=== PATIENT | male | born 1945 | race Asian ===

== ENCOUNTER 2018-03-24 11:31 | Inpatient (IN) | payer OTHER, MEDICAID ==
[~2018-03-24] VITALS: Ht 165.1 cm; Wt 65.8 kg
[2018-03-24] MEDS ORDERED: BENZ1TAB7 PO (12:27)
[2018-03-24] MEDS ORDERED: PALI6TAB PO (12:27)
[2018-03-24] MEDS ORDERED: DIVA250T4 PO (12:27)
[2018-03-24] MEDS ORDERED: RISP0.253 PO (12:27)
[2018-03-24] MEDS ORDERED: ZOLP5TAB2 PO (12:27)
[2018-03-24] MEDS ORDERED: MAG HYDROX/AL HYDROX/SIMETH 30 ML UDC PO PRN (12:30)
[2018-03-24] MEDS ORDERED: MAGNESIUM HYDROXIDE 30 ML UDC PO PRN (12:30)
[2018-03-24] MEDS ORDERED: ACETAMINOPHEN 325 MG TABLET PO PRN (12:30)
[2018-03-24 13:10] VITALS: BP 144/85
--- NOTE | 2018-03-24 14:51 | NUR ---
Admitted a 72 years old male on 5150 for DTS. Pt. reports to hearing voices telling him to hurt people and himself. Pt. reports the voices are constant and cause him distress. Pt. states he is finding it difficult to control himself. Pt. arrived in the unit via a gurney and transported via a gurney by EMT, pt. came from [facility], alert/ oriented x3, ambulatory, continent, Mandarin speaking and speaks basic Mongolian. Upon face to face assessment, pt. denies being suicidal and homicidal and saying that voices stopped, disorganized, cooperative in the admission process and refused to sign the papers and said he will sign by the time he'll be discharged. Pt. denies medical problems and skin is clear and intact. Dr. Salas made aware of the admission and with orders and Darnell Harry NP is medical doctor in charge. V/S taken, contraband done and skin assessment done and will continue to monitor for safety.
[2018-03-24 16:00] VITALS: BP 127/76
[2018-03-24 20:00] VITALS: BP 133/79
[2018-03-24] MEDS: TEMAZEPAM 15 MG CAPSULE PO PRN (22:45)
[2018-03-25] MEDS: clonazePAM 0.5 MG TABLET PO PRN (06:07)
[2018-03-25 07:29] LABS: ALBUMIN 3.9 g/dL (3.4-5.0); BILIRUBIN,TOTAL 0.6 mg/dL (0.2-1.0); CREATININE 0.9 mg/dL (0.6-1.3); TOTAL PROTEIN, SERUM 7.4 g/dL (6.4-8.2)
[2018-03-25 08:00] VITALS: BP 135/88
[2018-03-25] MEDS: NICOTINE PATCH (14MG) 14 MG PATCH.TD24 TD SCH (08:14)
--- NOTE | 2018-03-25 12:10 | NUR ---
Initial Discharge note: Pt is to possibly be discharged to [facility] Address: [address], [place] [address] ADMIN Brigette and Sec [phone]. Social work will form a safe and proper discharge.
--- NOTE | 2018-03-25 12:42 | NUR ---
UR NOTE: SW attempted three times to contact [facility] case manager specialist Avril Debbie [phone] for clinical update. Call was dropped and SW was unable to speak to a case manager specialist.
[2018-03-25] MEDS: BENZTROPINE MESYLATE (1 MG) 1 MG TABLET PO SCH ×2 (14:45→21:22)
[2018-03-25] MEDS: DIVALPROEX SODIUM 250 MG TABLET.DR PO SCH ×2 (14:45→21:22)
[2018-03-25] MEDS: risperiDONE 1 MG TABLET PO SCH ×2 (14:45→21:22)
[2018-03-25 16:00] VITALS: BP 148/98
[2018-03-25] MEDS: POLYVINYL ALCOHOL 15 ML BOTTLE EACHEYE PRN (16:14)
[2018-03-25 20:41] VITALS: BP 123/70
[2018-03-25] MEDS: TEMAZEPAM 15 MG CAPSULE PO PRN (21:22)
[2018-03-26 08:00] VITALS: BP 128/66
[2018-03-26] MEDS: DIVALPROEX SODIUM 250 MG TABLET.DR PO SCH ×2 (08:28→20:07)
[2018-03-26] MEDS: NICOTINE PATCH (14MG) 14 MG PATCH.TD24 TD SCH (08:28)
[2018-03-26] MEDS: BENZTROPINE MESYLATE (1 MG) 1 MG TABLET PO SCH ×3 (08:28→16:26)
[2018-03-26] MEDS: risperiDONE 1 MG TABLET PO SCH ×2 (08:28→16:27)
[2018-03-26 16:01] VITALS: BP 145/86
[2018-03-26 20:00] VITALS: BP 147/75
[2018-03-26] MEDS: clonazePAM 0.5 MG TABLET PO PRN (20:07)
[2018-03-26] MEDS: POLYVINYL ALCOHOL 15 ML BOTTLE EACHEYE PRN (20:08)
[2018-03-26] MEDS: TEMAZEPAM 15 MG CAPSULE PO PRN (21:21)
[2018-03-27 08:03] VITALS: BP 126/70
[2018-03-27] MEDS: BENZTROPINE MESYLATE (1 MG) 1 MG TABLET PO SCH ×3 (08:31→16:19)
[2018-03-27] MEDS: DIVALPROEX SODIUM 250 MG TABLET.DR PO SCH ×2 (08:31→20:03)
[2018-03-27] MEDS: NICOTINE PATCH (14MG) 14 MG PATCH.TD24 TD SCH (08:31)
[2018-03-27] MEDS: risperiDONE 1 MG TABLET PO SCH ×2 (08:32→16:19)
[2018-03-27 16:25] VITALS: BP 147/75
[2018-03-27 20:00] VITALS: BP 147/74
[2018-03-27] MEDS: clonazePAM 0.5 MG TABLET PO PRN (21:48)
[2018-03-27 23:00] VITALS: BP 135/80
[2018-03-27] MEDS: TEMAZEPAM 15 MG CAPSULE PO PRN (23:28)
[2018-03-28 08:00] VITALS: BP 138/77
[2018-03-28] MEDS: NICOTINE PATCH (14MG) 14 MG PATCH.TD24 TD SCH (08:20)
[2018-03-28] MEDS: BENZTROPINE MESYLATE (1 MG) 1 MG TABLET PO SCH (08:20)
[2018-03-28] MEDS: risperiDONE 1 MG TABLET PO SCH (08:20)
[2018-03-28] MEDS: DIVALPROEX SODIUM 250 MG TABLET.DR PO SCH (08:20)
--- NOTE | 2018-03-28 09:57 | NUR ---
DR. CASE GAVE AN ORDER TO D/C HOLD AND D/C TO [facility] AND TO FOLLOW UP WITH PSYCH AND MEDICAL DOCTORS.
--- NOTE | 2018-03-28 11:09 | NUR ---
RN NOTES PATIENT D/C BACK TO [facility] PER MD ORDER.
--- NOTE | 2018-03-28 11:59 | NUR ---
DISCHARGE NOTES PATIENT DISCHARGE AT THIS TIME GOING BACT TO [facility]. PATIENT A/O X3. PATIENT DENIED SI/HI./AVH. MED RECONCILIATION AND DISCHARGE ORDER REVIEWED AND EXPLAINED TO PATIENT. PATIENT VERBALIZED UNDERSTANDING. PATIENT MED COMPLIANT. V/S STABLE. NO COMPLAINING OF PAIN AT THIS TIME. BELONGING RETURNED BACK TO THE PATIENT. PATIENT WILL FOLLOW PRIMARY MRI ASSISTANT, AND PSYCHIATRIST. FAMILY AWARE OF DISCHARGE PLANING. ESCORTED PATIENT TO THE LOBBY FOR SAFETY. PATIENT CASTINGS TRIMMER BY CAB.
--- NOTE | 2018-03-28 12:22 | NUR ---
DISCHARGE NOTE: Pt was discharged at 12:00pm via [facility] taxi to [facility] Address: [address] [place] [address] . Pts social services coordinator at [facility] social services coordinator Halle Hollins (Jia) [phone] ext: [phone] has been notified via voicemail. Pts mood was euthymic with congruent affect. Pt denied suicidal/homicidal ideations and denied visual/auditory hallucinations. Pt was referred to Psychiatrist: Dr. Kulwant Hernandez [address] [facility] Abraham [address] [place] [phone] and Obstetrical Nurse: Dr. Neel Goldberg [address] [place] [address] [phone] and will schedule a follow-up appointment with the assistance of his SW Halle Hollins (Jia) [phone] ext: [phone]. The multidisciplinary exitcare form was done, printed, signed, and given to the patient.
--- NOTE | 2018-03-28 12:42 | NUR ---
UR NOTE: JORGE faxed clinical review to [facility] pillowcase cleaner Avril Lewis [phone] fax: [phone].
== END 2018-03-28 11:59 | disposition home or self-care (01) | DRG 885 ==
LOC: GPS 12:08
PROVIDERS: ADMIT Psychiatry & Neurology Psychiatry; ATTEND Psychiatry & Neurology Psychiatry
DX: F25.9 Schizoaffective disorder, unspecified (principal); F29 Unspecified psychosis not due to a substance or known physiological condition; F41.9 Anxiety disorder, unspecified; Z73.6 Limitation of activities due to disability
CPT/HCPCS: 36415; 80053-TC; 80061-TC; 80164-TC